=== PATIENT | male | born 1990 | race Caucasian/White ===

== ENCOUNTER 2023-07-08 09:53 | Emergency (ER) | payer SELFPAY ==
[~2023-07-08] VITALS: Ht 167.6 cm; Wt 93.0 kg
[2023-07-08 09:58] VITALS: BP_SYST 120; PULSE 85; RESP 16; TEMP 98.1; O2SAT 98
== END 2023-07-08 10:09 | disposition left against medical advice (07) ==
LOC: SED 09:53
DX: S00.12XA Contusion of left eyelid and periocular area, initial encounter (principal); Z53.21 Procedure and treatment not carried out due to patient leaving prior to being seen by health care provider; X58.XXXA Exposure to other specified factors, initial encounter; Y93.89 Activity, other specified; Y92.89 Other specified places as the place of occurrence of the external cause; Y99.8 Other external cause status
CPT/HCPCS: 99281